=== PATIENT | female | born 1945 | race Hispanic/Latino ===

== ENCOUNTER 2021-04-08 18:49 | Inpatient (IN) | payer SELFPAY ==
[~2021-04-08] VITALS: Ht 157.5 cm; Wt 65.4 kg
[2021-04-08] MEDS ORDERED: ACETAMINOPHEN 500 MG TABLET ONE (19:51)
[2021-04-08] MEDS ORDERED: KETOROLAC 30MG VIAL (30MG/ML) ONE (19:51)
[2021-04-08] MEDS ORDERED: ORPHENADRINE CITRATE 30 MG/ML ML ONE (19:51)
[2021-04-08] MEDS ORDERED: KETOROLAC 30MG VIAL (30MG/ML) IM ONE (20:00)
[2021-04-08] MEDS ORDERED: ACETAMINOPHEN 500 MG TABLET PO ONE (20:00)
[2021-04-08] MEDS ORDERED: ORPHENADRINE CITRATE 30 MG/ML ML IM ONE (20:00)
[2021-04-08] MEDS ORDERED: ASPIRIN 325MG TAB PO ONE (20:30)
[2021-04-08 20:35] LABS: BASOPHILS % (AUTO) 0.3 % (0.0-5.0); EOSINOPHILS % (AUTO) 2.5 % (0.0-8.0); HEMATOCRIT 40.1 % (36-48); LYMPHOCYTES % (AUTO) 10.5 % (21.0-51.0); MEAN CORPUSCULAR HEMOGLOBIN 31.3 pg (27.0-33.0); MEAN CORPUSCULAR HGB CONC 32.7 g/dL (32.0-36.0); MEAN CORPUSCULAR VOLUME 95.9 fL (79-99); MONOCYTES % (AUTO) 13.3 % (3.0-13.0); NEUTROPHILS % (AUTO) 72.9 % (40.0-77.0); PLATELET COUNT (AUTO) 283 K/uL (130-400); RED BLOOD CELL COUNT(AUTO) 4.18 MIL/uL (4.00-5.50); RED CELL DISTRIBUTION WIDTH 12.5 % (11.0-15.5); WHITE BLOOD COUNT (AUTO) 6.5 K/uL (4.8-10.8)
[2021-04-08 20:45] LABS: CREATININE 0.9 mg/dL (0.5-1.5); POTASSIUM 3.8 mmol/L (3.5-5.1)
[2021-04-08 20:54] LABS: ALBUMIN 3.7 g/dL (3.5-5.0); BILIRUBIN,TOTAL 0.6 mg/dL (0.2-1.0); TOTAL PROTEIN, SERUM 7.9 g/dL (6.0-8.3)
[2021-04-09] VITALS (7 sets, daily range): BP systolic 138–168; BP diastolic 76–90
[2021-04-09] MEDS ORDERED: ACETAMINOPHEN 325 MG TAB PO PRN ×2
[2021-04-09] MEDS ORDERED: NITROGLYCERIN 0.4 MG SL TAB SL PRN
[2021-04-09] MEDS ORDERED: LACTULOSE 20 GM/30 ML UDCUP PO PRN
[2021-04-09] MEDS ORDERED: ZOLPIDEM TARTRATE 5 MG TAB PO PRN
[2021-04-09] MEDS ORDERED: DiphenhydrAMINE HCL 50 MG/ML VIAL IV PRN
[2021-04-09] MEDS ORDERED: MORPHINE 4 MG SYG IV PRN
[2021-04-09] MEDS ORDERED: HYDROCODONE/ACETAMINOPHEN 5/325 MG TAB PO PRN
[2021-04-09] MEDS ORDERED: GUAIFENESIN-DM 200/20 MG 10 ML PO PRN
[2021-04-09] MEDS ORDERED: MAG/ALUM/SIMETH 30 ML UDCUP PO PRN
[2021-04-09] MEDS ORDERED: ONDANSETRON 4MG INJ IV PRN
[2021-04-09 02:58] LABS: APPEARANCE,URINE Clear (CLEAR); BILIRUBIN,URINE Negative (NEGATIVE); COLOR,URINE Yellow (YELLOW); GLUCOSE, URINE (UA) Negative (NEGATIVE); KETONES,URINE Negative (NEGATIVE); LEUKOCYTE ESTERASE ,URINE Small (NEGATIVE); NITRATE,URINE Negative (NEGATIVE); OCCULT BLOOD,URINE Trace (NEGATIVE); PROTEIN,URINE Negative (NEGATIVE)
[2021-04-09 03:06] LABS: AMPHET/METH SCREEN,URINE NEGATIVE (NEGATIVE); BARBITURATE SCREEN, URINE NEGATIVE (NEGATIVE); BENZODIAZEPINES SCREEN,URINE NEGATIVE (NEGATIVE); CANNABINOID SCREEN,URINE NEGATIVE (NEGATIVE); COCAINE SCREEN,URINE NEGATIVE (NEGATIVE); OPIATE SCREEN,URINE NEGATIVE (NEGATIVE); PHENCYCLIDINE SCREEN,URINE NEGATIVE (NEGATIVE)
[2021-04-09 03:27] LABS: BACTERIA,URINE Few /HPF (None Seen); RBC,URINE 0-1 /HPF (0-1)
[2021-04-09 04:50] LABS: HEMOGLOBIN A1C 5.7 % (4.0-6.0)
[2021-04-09 04:52] LABS: CHOLESTEROL 164 mg/dL (<200); HDL CHOLESTEROL 38 mg/dL (35-85); LDL DIRECT 104 mg/dL (0-99); TRIGLYCERIDES 99 mg/dL (30-200)
[2021-04-09] MEDS: METOPROLOL TARTRATE 25 MG TAB PO SCH ×2 (08:15→21:24)
[2021-04-09] MEDS: FAMOTIDINE 20MG VIAL IV SCH (08:16)
[2021-04-09] MEDS: ASPIRIN 81 MG EC TAB PO SCH (08:16)
[2021-04-09] MEDS ORDERED: ENOXAPARIN SODIUM 40 MG/0.4 ML SYRINGE SQ SCH (09:00)
[2021-04-09] MEDS ORDERED: PHARMACY COMMUNICATION MISC SCH (10:30)
[2021-04-09] MEDS ORDERED: CLOPIDOGREL 300MG TAB PO SCH (11:30)
[2021-04-09] MEDS ORDERED: HEPARIN 25,000 UNITS/250ML D5W 250 ML IV SCH (20:30)
[2021-04-09] MEDS ORDERED: ENOXAPARIN SODIUM 80 MG/0.8 ML SQ SCH (21:00)
[2021-04-09 21:01] LABS: BASOPHILS % (AUTO) 0.2 % (0.0-5.0); EOSINOPHILS % (AUTO) 0.2 % (0.0-8.0); LYMPHOCYTES % (AUTO) 29.5 % (21.0-51.0); MEAN CORPUSCULAR HEMOGLOBIN 31.8 pg (27.0-33.0); MEAN CORPUSCULAR HGB CONC 32.4 g/dL (32.0-36.0); MEAN CORPUSCULAR VOLUME 98.2 fL (79-99); MONOCYTES % (AUTO) 14.4 % (3.0-13.0); NEUTROPHILS % (AUTO) 55.5 % (40.0-77.0); PLATELET COUNT (AUTO) 225 K/uL (130-400); RED BLOOD CELL COUNT(AUTO) 3.87 MIL/uL (4.00-5.50); RED CELL DISTRIBUTION WIDTH 12.7 % (11.0-15.5); WHITE BLOOD COUNT (AUTO) 4.7 K/uL (4.8-10.8)
[2021-04-09] MEDS: CARVEDILOL 12.5 MG TABLET PO SCH ×2 (21:37→21:38)
[2021-04-09] MEDS ORDERED: HEPARIN 5,000 UNIT VIAL ONE (22:07)
[2021-04-09] MEDS ORDERED: ACETAMINOPHEN 325 MG TAB ONE (23:12)
[2021-04-10 03:56] VITALS: BP 137/68
[2021-04-10 04:46] LABS: BASOPHILS % (AUTO) 0.2 % (0.0-5.0); EOSINOPHILS % (AUTO) 0.2 % (0.0-8.0); HEMATOCRIT 37.1 % (36-48); LYMPHOCYTES % (AUTO) 49.2 % (21.0-51.0); MEAN CORPUSCULAR HEMOGLOBIN 31.2 pg (27.0-33.0); MEAN CORPUSCULAR HGB CONC 32.6 g/dL (32.0-36.0); MEAN CORPUSCULAR VOLUME 95.6 fL (79-99); MONOCYTES % (AUTO) 9.5 % (3.0-13.0); NEUTROPHILS % (AUTO) 40.7 % (40.0-77.0); PLATELET COUNT (AUTO) 239 K/uL (130-400); RED BLOOD CELL COUNT(AUTO) 3.88 MIL/uL (4.00-5.50); RED CELL DISTRIBUTION WIDTH 12.8 % (11.0-15.5); WHITE BLOOD COUNT (AUTO) 4.6 K/uL (4.8-10.8)
[2021-04-10 07:32] VITALS: BP 157/81
[2021-04-10] MEDS ORDERED: CLOPIDOGREL 75MG TAB PO SCH (09:00)
[2021-04-10] MEDS ORDERED: CLOPIDOGREL 300MG TAB PO SCH (09:00)
[2021-04-10] MEDS ORDERED: CARVEDILOL 12.5 MG TABLET PO SCH (09:00)
[2021-04-10] MEDS: FAMOTIDINE 20MG VIAL IV SCH (09:35)
[2021-04-10] MEDS: ASPIRIN 81 MG EC TAB PO SCH (09:35)
[2021-04-10 09:46] LABS: CREATININE 0.8 mg/dL (0.5-1.5); CRP QUANTITATIVE 9.8 mg/L (0.00-9.0); POTASSIUM 3.8 mmol/L (3.5-5.1)
[2021-04-10] MEDS ORDERED: PANTOPRAZOLE 40 MG TAB DR PO SCH (10:02)
[2021-04-10 11:57] VITALS: BP 125/57
[2021-04-11] MEDS ORDERED: PANTOPRAZOLE 40 MG TAB DR PO SCH (09:00)
== END 2021-04-10 14:30 | disposition left against medical advice (07) | DRG 177 ==
LOC: EDH 18:49 → EDHIP 18:50 → UNDOADMIN 23:50 → EDHIP 23:50 → 2AH 04-09 02:34
PROVIDERS: ADMIT Internal Medicine; ATTEND Internal Medicine
DX: U07.1 COVID-19 (principal); I21.A1 Myocardial infarction type 2; I10 Essential (primary) hypertension; Z53.20 Procedure and treatment not carried out because of patient's decision for unspecified reasons; Z82.49 Family history of ischemic heart disease and other diseases of the circulatory system
CPT/HCPCS: 36415; 70450; 71045; 72128; 72131; 72192; 80048; 80053; 80061; 80305; 81001; 82550; 82728; 83036; 83605; 83874; 83880; 84145; 84484; 85025; 85378; 85384; 85730; 86140; 87088; 87635; 87804; 93005; 93970; C9803; G0378; J1644; J1650; J1885; J3490